=== PATIENT | male | born 1975 | race Hispanic/Latino ===

== ENCOUNTER 2020-08-26 16:03 | Emergency (ER) | payer OTHER ==
[~2020-08-26] VITALS: Ht 160 cm; Wt 65.8 kg
[2020-08-26] MEDS ORDERED: BUPIVACAINE HCL 0.5% INJ 30 ML VIAL INJ ONE (16:30)
[2020-08-26] MEDS ORDERED: LIDOCAINE 1% 5ML-MPF INJ ONE (16:30)
[2020-08-26] MEDS ORDERED: HYDROCODONE/APAP 10MG-325MG TAB PO ONE (17:45)
[2020-08-26] MEDS ORDERED: HYDROCODONE/APAP 10MG-325MG TAB ONE (17:45)
[2020-08-26] MEDS ORDERED: SILVER NITRATE SWABS ONE (17:46)
[2020-08-26] MEDS ORDERED: TETANUS/DIPHTHERIA TOX ADULT 0.5 ML SYR IM ONE (18:15)
[2020-08-26] MEDS ORDERED: SILVER NITRATE SWABS TOP ONE (18:30)
[2020-08-26] MEDS ORDERED: KEFLEX500 MG PO (18:33)
[2020-08-26] MEDS ORDERED: TYLENOL # 31 EA PO (18:33)
== END 2020-08-26 19:12 | disposition home or self-care (01) ==
LOC: ER 16:23
DX: S68.127A Partial traumatic metacarpophalangeal amputation of left little finger, initial encounter (principal); W23.1XXA Caught, crushed, jammed, or pinched between stationary objects, initial encounter; Y99.0 Civilian activity done for income or pay
CPT/HCPCS: 90471; 90714; 99283

== ENCOUNTER 2020-09-14 17:21 | Inpatient (IN) | payer SELFPAY ==
[~2020-09-14] VITALS: Ht 160 cm; Wt 65.8 kg
[~2020-09-14 17:21] MED LIST: KEFLEX500 MG PO; TYLENOL # 31 EA PO
[2020-09-14] MEDS ORDERED: CEFEPIME 1GM/NS 0.9% 50 ML 50 ML IV SCH (17:45)
[2020-09-14] MEDS ORDERED: VANCOMYCIN 1GM/NS 250 ML 250 ML IV ONE (18:15)
[2020-09-14 20:02] LABS: BASOPHILS # (AUTO) 0.1 (0.0-0.1); BASOPHILS % 0.8 % (0.0-1.0); EOSINOPHILS # (AUTO) 0.3 (0.0-0.4); EOSINOPHILS % 5.5 % (0.0-6.0); HEMATOCRIT 41.2 % (38.2-49.6); HEMOGLOBIN 13.9 g/dL (14.0-18.0); LYMPHOCYTES # (AUTO) 2.2 (1.0-3.2); LYMPHOCYTES % 35.1 % (18.0-39.1); MEAN CORPUSCULAR HEMOGLOBIN 30.3 pg (28-32); MEAN CORPUSCULAR HGB CONC 33.7 g/dL (31-35); MEAN CORPUSCULAR VOLUME 89.8 fL (81-99); MONOCYTES # (AUTO) 0.3 (0.2-0.8); MONOCYTES % 5.4 % (4.4-11.3); NEUTROPHILS # (AUTO) 3.3 (2.1-6.9); NEUTROPHILS % 52.9 % (38.7-80.0); PLATELET COUNT 336 x10e3/uL (140-360); RED BLOOD COUNT 4.59 x10e6/uL (4.3-5.7); RED CELL DISTRIBUTION WIDTH 12.1 % (11.7-14.4)
[2020-09-14 20:19] LABS: ALBUMIN 4.1 g/dL (3.5-5.0); ALBUMIN/GLOBULIN RATIO 1.2 (0.8-2.0); ANION GAP 11.4 mmol/L (8-16); CALCIUM 9.4 mg/dL (8.4-10.2); CREATININE, SERUM 1.3 mg/dL (0.72-1.25); POTASSIUM 4.4 mmol/L (3.5-5.1)
[2020-09-14 20:42] VITALS: BP 114/70
[2020-09-14] MEDS ORDERED: DEXTROSE 50% SYRINGE 50 ML IV PRN (20:45)
[2020-09-14] MEDS: INSULIN REGULAR, HUMAN 100 UNIT/1 ML 3ML VIAL SQ SCH (21:00)
[2020-09-14] MEDS ORDERED: IBUPROFEN400 MG PO (22:31)
[2020-09-14] MEDS ORDERED: LEVEMIR100 UNIT/1 SQ (22:31)
[2020-09-15] VITALS (8 sets, daily range): BP systolic 103–118; BP diastolic 64–74
[2020-09-15 05:23] LABS: BASOPHILS # (AUTO) 0.1 (0.0-0.1); BASOPHILS % 0.5 % (0.0-1.0); EOSINOPHILS # (AUTO) 0.1 (0.0-0.4); EOSINOPHILS % 1.5 % (0.0-6.0); HEMATOCRIT 38.5 % (38.2-49.6); HEMOGLOBIN 13.4 g/dL (14.0-18.0); LYMPHOCYTES # (AUTO) 1.2 (1.0-3.2); MEAN CORPUSCULAR HEMOGLOBIN 30.7 pg (28-32); MEAN CORPUSCULAR HGB CONC 34.8 g/dL (31-35); MEAN CORPUSCULAR VOLUME 88.3 fL (81-99); MONOCYTES # (AUTO) 0.4 (0.2-0.8); MONOCYTES % 4.8 % (4.4-11.3); NEUTROPHILS # (AUTO) 7.4 (2.1-6.9); NEUTROPHILS % 79.8 % (38.7-80.0); PLATELET COUNT 322 x10e3/uL (140-360); RED BLOOD COUNT 4.36 x10e6/uL (4.3-5.7)
[2020-09-15 05:26] LABS: INR 1.06; PROTHROMBIN TIME 14.3 seconds (11.9-14.5)
[2020-09-15 05:27] LABS: PARTIAL THROMBOPLASTIN TIME 30.1 seconds (23.8-35.5)
[2020-09-15 05:41] LABS: ALANINE AMINOTRANSFERASE 26 IU/L (0-55); ALBUMIN 3.8 g/dL (3.5-5.0); ALBUMIN/GLOBULIN RATIO 1.3 (0.8-2.0); ALKALINE PHOSPHATASE 47 IU/L (40-150); ANION GAP 12.7 mmol/L (8-16); BLOOD UREA NITROGEN 16 mg/dL (7-26); BUN/CREATININE RATIO 22 (6-25); CALCIUM 8.8 mg/dL (8.4-10.2); CARBON DIOXIDE 23 mmol/L (22-29); CHLORIDE 108 mmol/L (98-107); CREATININE, SERUM 0.74 mg/dL (0.72-1.25); EST GLOMERULAR FILTRATION RATE > 60 ML/MIN (60-); GLUCOSE 65 mg/dL (74-118); POTASSIUM 3.7 mmol/L (3.5-5.1); SODIUM 140 mmol/L (136-145)
[2020-09-15] MEDS: INSULIN REGULAR, HUMAN 100 UNIT/1 ML 3ML VIAL SQ SCH ×4 (07:30→21:46)
[2020-09-15] MEDS ORDERED: ACETAMINOPHEN 325 MG TAB PO PRN (10:00)
[2020-09-15] MEDS ORDERED: TRAMADOL HCL 50 MG TAB PO ONE (11:00)
[2020-09-15] MEDS: MORPHINE SULFATE INJ 4 MG/ML INJ 1ML IV PRN ×3 (11:42→23:34)
[2020-09-15] MEDS ORDERED: FENTANYL CITRATE/PF 100MCG/2 ML INJ ONE (11:59)
[2020-09-15] MEDS ORDERED: MIDAZOLAM HCL 2 MG/2 ML VIAL ONE (11:59)
[2020-09-15] MEDS: CEFEPIME 2 GM/NS 0.9% 100 ML 100 ML IV SCH ×2 (12:30→21:30)
[2020-09-15] MEDS ORDERED: LIDOCAINE HCL 1% LOCAL INJ 20 ML VIAL ONE (13:38)
[2020-09-15] MEDS ORDERED: BUPIVACAINE 0.25% 30ML SDV ONE (13:38)
[2020-09-15] MEDS ORDERED: VANCOMYCIN 1GM/NS 250 ML 250 ML ONE (13:55)
[2020-09-15] MEDS ORDERED: PROPOFOL IV EMULSION 10 MG/ML 20 ML VIAL ONE (17:42)
[2020-09-15] MEDS ORDERED: LIDOCAINE HCL 2% LOCAL INJ 5 ML SDV VIAL INJ ONE (17:42)
[2020-09-15] MEDS: ONDANSETRON HCL INJ 2MG/ML 2ML 2 MG/ML VIAL IV PRN ×2 (19:31→23:34)
[2020-09-16] VITALS: BP 107/76
[2020-09-16 04:00] VITALS: BP 103/73
[2020-09-16] MEDS: MORPHINE SULFATE INJ 4 MG/ML INJ 1ML IV PRN (04:41)
[2020-09-16] MEDS: ONDANSETRON HCL INJ 2MG/ML 2ML 2 MG/ML VIAL IV PRN (04:41)
[2020-09-16] MEDS: INSULIN REGULAR, HUMAN 100 UNIT/1 ML 3ML VIAL SQ SCH (07:30)
[2020-09-16 07:45] VITALS: BP 103/73
[2020-09-16 08:00] VITALS: BP 98/58
[2020-09-16] MEDS: CEFEPIME 2 GM/NS 0.9% 100 ML 100 ML IV SCH (09:30)
== END 2020-09-16 11:06 | disposition home or self-care (01) | DRG 515 ==
LOC: ER 18:13 → ERHOLD 18:14 → MED/SURG2 20:42
PROC: 0PBV0ZZ Excision of Left Finger Phalanx, Open Approach (ICD-10-PCS; principal; 2020-09-15 07:30)
DX: M86.142 Other acute osteomyelitis, left hand (principal); U07.1 COVID-19; T87.42 Infection of amputation stump, left upper extremity; N17.9 Acute kidney failure, unspecified; E11.9 Type 2 diabetes mellitus without complications
CPT/HCPCS: 36415; 80053; 82948; 85025; 85610; 85730; 87040; 87071; 87075; 87205; 88304; 88307; 88311; 99251; 99284; J0692; J2001; J2250; J2270; J2405; J3010; J3370; U0002